=== PATIENT | female | born 1985 | race Caucasian/White ===

== ENCOUNTER 2017-01-11 06:14 | Day surgery (SDC) | payer MEDICAID ==
[~2017-01-11] VITALS: Ht 160 cm; Wt 60.4 kg
[~2017-01-11 06:14] MED LIST: LACTATED RINGER'S 1,000 ML IV SCH
[2017-01-11 07:25] VITALS: BP 118/62; PULSE 68; RESP 18; Ht 160 cm; Wt 60.4 kg
[2017-01-11 07:26] LABS: ADD SCAN DIFF NO
[2017-01-11 07:29] LABS: BASOPHILS % 0.5 % (0.0-2.0); EOSINOPHILS # 0.1 10^3/ul (0.0-0.5); EOSINOPHILS % 0.8 % (0.0-7.0); HEMATOCRIT 37.3 % (37.0-47.0); HEMOGLOBIN 12.4 g/dl (12.0-16.0); LYMPHOCYTES # 2.2 10^3/ul (0.8-2.9); LYMPHOCYTES % 33.7 % (15.0-51.0); MEAN CORPUSCULAR HEMOGLOBIN 30.8 pg (29.0-33.0); MEAN CORPUSCULAR HGB CONC 33.2 g/dl (32.0-37.0); MEAN CORPUSCULAR VOLUME 92.6 fl (82.0-101.0); MEAN PLATELET VOLUME 10.6 fl (7.4-10.4); MONOCYTE # 0.3 10^3/ul (0.3-0.9); MONOCYTES % 5.3 % (0.0-11.0); NEUTROPHIL # 3.8 10^3/ul (1.6-7.5); NEUTROPHILS % 59.4 % (39.0-77.0); PLATELET COUNT 195 10^3/UL (140-415); RED BLOOD COUNT 4.03 10^6/ul (4.20-5.40); RED CELL DISTRIBUTION WIDTH 12.4 % (11.5-14.5); WHITE BLOOD COUNT 6.4 10^3/ul (4.8-10.8)
[2017-01-11] MEDS ORDERED: MIDAZOLAM 1 MG/ML 2 ML INJ ONE (07:42)
[2017-01-11] MEDS ORDERED: ROCURONIUM 50 MG INJ ONE (07:42)
[2017-01-11] MEDS ORDERED: PROPOFOL 20 ML ONE (07:42)
[2017-01-11] MEDS ORDERED: FENTAnyl 50 MCG/ML VIAL ONE (07:42)
[2017-01-11] MEDS ORDERED: LIDOCAINE 1% (MDV) 20 ML INJ ONE (07:42)
[2017-01-11] MEDS ORDERED: ROPIVACAINE 0.2% 20 ML VIAL ONE (07:47)
--- NOTE | 2017-01-11 08:27 | QN ---
Documentation Comment laparoscpic BTL and possible laparotomy extensively discussed with the patient.patient is advised about alternatives including essure patient declined the procedure and case i9s cancelled NICOLAS BALLESTEROS M.D. Jan 11, 2017 08:27
[2017-01-11] MEDS ORDERED: CEFAZOLIN 1 GM INJ ONE (09:30)
[2017-01-11] MEDS ORDERED: ONDANSETRON 4 MG INJ ONE (09:39)
[2017-01-11] MEDS ORDERED: FAMOTIDINE 20 MG INJ ONE (09:39)
[2017-01-11] MEDS ORDERED: DEXAMETHASONE 4 MG/ML 1 ML INJ ONE (09:39)
[2017-01-11] MEDS ORDERED: NEOSTIGMINE 3 MG/3 ML SYRINGE ONE (10:28)
[2017-01-11] MEDS ORDERED: GLYCOPYRROLATE 0.4 MG INJ ONE (10:28)
== END 2017-01-11 07:30 | disposition home or self-care (01) ==
LOC: SDS 06:14
PROVIDERS: ATTEND Obstetrics & Gynecology
DX: Z30.2 Encounter for sterilization (principal); Z53.9 Procedure and treatment not carried out, unspecified reason
CPT/HCPCS: 85025; 86850; 86900; 86901; J0690; J1100; J2250; J2405; J2710; J2795; J3010

== ENCOUNTER 2017-11-15 08:49 | Emergency (ER) | END 2017-11-15 10:15 | disposition home or self-care (01) ==

== ENCOUNTER 2018-12-04 09:28 | Emergency (ER) | payer MEDICAID ==
[~2018-12-04] VITALS: Ht 162.6 cm; Wt 62.6 kg
[~2018-12-04 09:28] MED LIST changes: +ACET325T33 PO; +AZIT250T PO; +IBUP-1542 PO; -LACTATED RINGER'S 1,000 ML IV SCH; +PSEU30TA38 PO
[2018-12-04 09:46] VITALS: BP 129/65; PULSE 68; RESP 18; Ht 162.6 cm; Wt 62.6 kg
[2018-12-04] MEDS ORDERED: KETOROLAC 60 MG INJ IM STA (11:07)
[2018-12-04] MEDS ORDERED: LEVO5TAB28 PO (11:09)
[2018-12-04] MEDS ORDERED: PROM6.2515 PO (11:09)
[2018-12-04] MEDS ORDERED: FAMO-96 PO (11:09)
--- NOTE | 2018-12-04 15:25 | ERD ---
ER Documentation Chief Complaint Chief Complaint COUGH & SORETHROAT X1MTH HPI 33-year-old female presenting with cough and sore throat x1 month. Patient has not taken medication. She has a mild runny nose with recent seasonal allergies. Denies any fevers. Denies medical problems. NKDA. Surgical history C-secti on. Social history denies ROS All systems reviewed and are negative except as per history of present illness. Medications Home Meds Active Scripts Promethazine Hcl* (Promethazine Hcl* Syrup) 6.25 Mg/5 Ml Syrup, 6.25 MG PO Q6H PRN for COUGH, #100 ML Prov:AMINATA ENGEL PA-C 12/04/18 Famotidine* (Pepcid*) 20 Mg Tablet, 20 MG PO BID for 4 Days, #30 TAB Prov:AMINATA ENGEL PA-C 12/04/18 Levocetirizine Dihydrochloride (Xyzal) 5 Mg Tablet, 5 MG PO QPM, #20 TAB Prov:AMINATA ENGEL PA-C 12/04/18 Azithromycin* (Zithromax*) 250 Mg Tablet, 250 MG PO .ZPACK DIRECTED, #6 TAB TAKE 500 MG (2 TABS) THE FIRST DAY THEN 250 MG (1 TAB) DAYS 2-5 Prov:AMINATA ENGEL PA-C 11/15/17 Pseudoephedrine Hcl* (Pseudoephedrine Hcl*) 30 Mg Tablet, 30 MG PO Q6 PRN for CONGESTION, #30 TAB Prov:AMINATA ENGEL PA-C 11/15/17 Acetaminophen* (Tylenol*) 325 Mg Tablet, 2 TAB PO Q8 PRN for PAIN AND OR ELEVATED TEMP, #20 TAB Prov:AMINATA ENGEL PA-C 11/15/17 Ibuprofen* (Motrin*) 600 Mg Tab, 600 MG PO Q6, #30 TAB Prov:AMINATA ENGEL PA-C 11/15/17 Allergies Allergies: Coded Allergies: No Known Allergy (Unverified , 11/15/17) PMhx/Soc History of Surgery: Yes (right eye surg, c-sectionx3) Anesthesia Reaction: Yes (n/v, headache) Hx Neurological Disorder: No Hx Respiratory Disorders: No Hx Cardiac Disorders: No Hx Psychiatric Problems: No Hx Miscellaneous Medical Probl: No Hx Alcohol Use: No Hx Substance Use: No Hx Tobacco Use: No FmHx Family History: No diabetes, No coronary disease, No other Physical Exam Vitals Vital Signs Date Temp Pulse Resp B/P (MAP) Pulse Ox O2 O2 Flow FiO2 Time Delivery Rate 12/04/18 97.7 68 18 129/65 100 09:46 (86) Physical Exam GENERAL: The patient is well-appearing, well-nourished, in no acute distress HEENT: Atraumatic. Conjunctivae are pink. Pupils equal, round, and reactive to light. There is no scleral icterus. Tympanic membranes clear bilaterally. Oropharynx clear. NECK: C-spine is soft and supple. There is no meningismus. There is no cervical lymphadenopathy. CHEST: Clear to auscultation bilaterally. There are no rales, wheezes or rhonchi. HEART: Regular rate and rhythm. No murmurs, clicks, rubs or gallops. ABDOMEN:Soft, nontender and nondistended. Good bowel sounds. No rebound or guarding. No gross peritonitis. No gross organomegaly or masses. Results 24 hrs Laboratory Tests Test 12/04/18 11:36 POC Beta HCG, Qualitative NEGATIVE Current Medications Medications Dose Sig/Kimberli Start Time Status Last (Trade) Ordered Route PRN Stop Time Admin Dose Reason Admin Ketorolac 60 mg ONCE STAT 12/04/18 DC 12/04/18 Tromethamine IM 11:07 11:45 (Toradol) 12/04/18 11:08 Procedures/MDM MDM: 33-year-old female presenting with cough. I have low suspicion for bony. I have low suspicion for respiratory distress or hypoxia. I have low suspicion for bacterial HEENT infection. Patient likely has sore throat due to sinusitis or acid reflux. Patient will be discharged with supportive medications. All questions answered at discharge Departure Diagnosis: Primary Impression: Sore throat Condition: Stable Patient Instructions: Self-Care for Sore Throats Referrals: COMMUNITY CLINICS YOU HAVE RECEIVED A MEDICAL SCREENING EXAM AND THE RESULTS INDICATE THAT YOU DO NOT HAVE A CONDITION THAT REQUIRES URGENT TREATMENT IN THE EMERGENCY DEPARTMENT. FURTHER EVALUATION AND TREATMENT OF YOUR CONDITION CAN WAIT UNTIL YOU ARE SEEN IN YOUR DOCTORS OFFICE WITHIN THE NEXT 1-2 DAYS. IT IS YOUR RESPONSIBILITY TO MAKE AN APPOINTMENT FOR FOLOW-UP CARE. IF YOU HAVE A PRIMARY DOCTOR --you should call your primary doctor and schedule an appointment IF YOU DO NOT HAVE A PRIMARY DOCTOR YOU CAN CALL OUR PHYSICIAN REFERRAL HOTLINE AT IF YOU CAN NOT AFFORD TO SEE A PHYSICIAN YOU CAN CHOSE FROM THE FOLLOWING [facility] [id number] [facility] [address] [facility] [address] [facility] [address] [facility] [address]. [facility] [address] Additional Instructions: FOLLOW UP WITH YOUR PRIMARY CARE PHYSICIAN TOMORROW.Return to this facility if you are not improving as expected. AMINATA ENGEL PA-C Dec 04, 2018 15:25
== END 2018-12-04 11:51 | disposition home or self-care (01) ==
LOC: FTE 09:28
DX: J02.9 Acute pharyngitis, unspecified (principal)
CPT/HCPCS: 81025; 96372; J1885; Z7502